=== PATIENT | female | born 1945 | race Caucasian/White ===

== ENCOUNTER 2018-02-15 12:38 | Emergency (ER) | payer OTHER ==
[~2018-02-15] VITALS: Ht 157.5 cm; Wt 61.2 kg
[2018-02-15 12:42] VITALS: BP 145/71
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
--- NOTE | 2018-02-15 13:05 | NUR ---
PT BEING SEEN BY DR. VAUGHN AT THIS TIME.
[2018-02-15] MEDS ORDERED: KETOROLAC 60 MG/2 ML VIAL IM ONE (13:10)
--- NOTE | 2018-02-15 13:27 | NUR ---
patient to CT via w/c accompanied by radiolog tech
[2018-02-15 14:32] VITALS: BP 135/69
== END 2018-02-15 14:32 | disposition home or self-care (01) ==
LOC: MED 12:38
DX: S09.90XA Unspecified injury of head, initial encounter (principal); Z88.1 Allergy status to other antibiotic agents; W22.8XXA Striking against or struck by other objects, initial encounter; Y93.89 Activity, other specified; Y92.89 Other specified places as the place of occurrence of the external cause; Y99.8 Other external cause status
CPT/HCPCS: 70450; 96372; 99284; J1885